=== PATIENT | male | born 1955 | race Caucasian/White ===

== ENCOUNTER 2019-09-14 16:17 | Inpatient (IN) | payer MEDICAID ==
[~2019-09-14] VITALS: Ht 185.4 cm; Wt 100.0 kg
[2019-09-14] MEDS ORDERED: metoprolol tartrate 1mg/ml inj IV ONE (16:25)
[2019-09-14 16:55] LABS: ALANINE AMINOTRANSFERASE 17 U/L (12-78); ALBUMIN 2.4 G/DL (3.4-5.0); ALBUMIN/GLOBULIN RATIO 0.7 (1.1-1.5); ALKALINE PHOSPHATASE 102 IU/L (46-116); ANION GAP 10 (8-16); ASPARTATE AMINO TRANSFERASE 26 U/L (10-37); BILIRUBIN,TOTAL 0.9 MG/DL (0.1-1.0); BLOOD UREA NITROGEN 20 MG/DL (7-18); BUN/CREATININE RATIO 15.5 (5.4-32.0); CALCIUM 8.6 MG/DL (8.5-10.1); CHLORIDE 108 MMOL/L (99-107); CREATININE 1.29 MG/DL (0.60-1.10); GLUCOSE 95 MG/DL (70-104); POTASSIUM 3.4 MMOL/L (3.5-5.1); SODIUM 144 MMOL/L (135-145); TOTAL CARBON DIOXIDE 26.4 MMOL/L (24-32); eGFR 57 ML/MIN
[2019-09-14] MEDS ORDERED: METF-436 PO (17:32)
[2019-09-14] MEDS ORDERED: ATOR40TA71 PO (17:32)
[2019-09-14] MEDS ORDERED: CLOP75TA33 PO (17:32)
[2019-09-14] MEDS ORDERED: LISI10TA4 PO (17:32)
[2019-09-14] MEDS ORDERED: GLIP2.5T3 PO (17:32)
[2019-09-14] MEDS ORDERED: HCTZ25T PO (17:32)
[2019-09-14] MEDS ORDERED: ASPI-611 PO (17:32)
[2019-09-14] MEDS ORDERED: potassium CL 10mEq/100ml bag 100 ML IV PRN ×2 (19:45)
[2019-09-14] MEDS ORDERED: acetaminophen 325mg tablet PO PRN ×2 (19:45)
[2019-09-14] MEDS ORDERED: HYDROcodone/acetaminophen 5mg/325mg tablet PO PRN (19:45)
[2019-09-14] MEDS ORDERED: ondansetron/PF 4mg/2ml inj IV PRN (19:45)
[2019-09-14] MEDS ORDERED: magnesium Cl slow-release 64mg tablet PO PRN (19:45)
[2019-09-14] MEDS ORDERED: potassium Cl 20 mEq SR tablet PO PRN (19:45)
[2019-09-14] MEDS ORDERED: morphine 2 MG/ML inj. syringe IV PRN ×2 (19:45)
[2019-09-14] MEDS ORDERED: HYDROcodone/acetaminophen 10/325mg tab PO PRN (19:45)
[2019-09-14] MEDS ORDERED: magnesium 4gm in 100ml NS 100 ML IV PRN (19:45)
[2019-09-14] MEDS ORDERED: magnesium 2GM in 50ml NS 50 ML IV PRN (19:45)
[2019-09-14] MEDS ORDERED: dextrose 50%-water 50ml dispensing syringe IV PRN ×2 (19:55)
[2019-09-14] MEDS ORDERED: insulin Lispro (HumaLOG) vial - multi-dose SQ SCH (19:55)
[2019-09-14] MEDS ORDERED: dextrose ORAL solution 15 GM/59 ML bottle PO PRN ×2 (19:55)
[2019-09-14] MEDS ORDERED: glucagon, human recombinant 1mg kit SUBCUT PRN (19:55)
[2019-09-14] MEDS ORDERED: MESSAGE TO PHARMACY PO ONE (19:55)
[2019-09-14] MEDS: K and/or MAG REPLACEMENT MC SCH (20:00)
[2019-09-14 20:21] LABS: HEMOGLOBIN A1C 6.8 % (4.5-6.2)
[2019-09-14] MEDS: heparin, porcine 5000 units/ml vial SQ SCH (20:39)
[2019-09-14] MEDS: normal saline 1000ml 1,000 ML IV SCH (20:39)
[2019-09-14] MEDS: docusate sod 100mg capsule PO SCH (20:40)
[2019-09-14] MEDS: insulin glargine (Lantus) pen - multi-dose SQ SCH (21:00)
[2019-09-14] MEDS ORDERED: temazepam 15mg capsule PO PRN (21:00)
--- NOTE | 2019-09-14 21:07 | NUR ---
Patient has not met DM protocol. Josesitotus held.
--- NOTE | 2019-09-14 21:25 | NUR ---
pt moved from room 3 to room 10 due to ems needing bed 3
[2019-09-14 21:35] LABS: CLARITY,URINE CLEAR (Clear); COLOR,URINE YELLOW (Yellow); GLUCOSE, URINE NEGATIVE (Neg); KETONES,URINE TRACE mg/dl (Neg); LEUKOCYTE ESTERASE ,URINE NEGATIVE (Neg); NITRITES, URINE NEGATIVE (Neg); OCCULT BLOOD,URINE MODERATE (Neg); PROTEIN,URINE >=300 mg/dl (Neg)
[2019-09-14 21:42] LABS: UA COLLECTION TYPE URINAL
[2019-09-14 21:44] LABS: BACTERIA,URINE NONE SEEN /HPF (Neg); RBC,URINE 0-2 /HPF (0-2); SQUAMOUS EPITHELIAL CELL,UR FEW /LPF (FEW); WBC,URINE 0-4 /HPF (0-4)
--- NOTE | 2019-09-15 02:52 | NUR ---
pt placed on hospital bed for comfort
[2019-09-15 05:12] LABS: BASOPHILS # (AUTO) 0.1 X10'3 (0-0.2); BASOPHILS % (AUTO) 0.8 % (0-1); EOSINOPHILS # (AUTO) 0.1 X10'3 (0-0.9); HEMATOCRIT 43.3 % (42.0-52.0); HEMOGLOBIN 14.9 g/dl (14.0-17.9); LYMPHOCYTES # (AUTO) 1.4 X10'3 (1.1-4.8); LYMPHOCYTES % (AUTO) 20.8 % (21-51); MEAN CORPUSCULAR HEMOGLOBIN 30.1 PG (27.0-31.0); MEAN CORPUSCULAR HGB CONC 34.4 g/dL (33.0-36.5); MEAN CORPUSCULAR VOLUME 87.6 FL (78-98); MEAN PLATELET VOLUME 9.3 FL (7.4-10.4); MONOCYTES # (AUTO) 0.7 X10'3 (0-0.9); MONOCYTES % (AUTO) 10.5 % (2-12); NEUTROPHILS # (AUTO) 4.6 X10'3 (1.8-7.7); NEUTROPHILS % (AUTO) 66.9 % (42-75); PLATELET COUNT 157 X10'3 (140-440); RED BLOOD COUNT 4.94 X10'6 (4.70-6.10); RED CELL DISTRIBUTION WIDTH 15.2 % (11.5-14.5); WHITE BLOOD COUNT 6.9 X10'3 (4.5-11.0)
[2019-09-15 05:20] LABS: ALANINE AMINOTRANSFERASE 18 U/L (12-78); ALBUMIN 2.2 G/DL (3.4-5.0); ALBUMIN/GLOBULIN RATIO 0.6 (1.1-1.5); ALKALINE PHOSPHATASE 97 IU/L (46-116); ANION GAP 10 (8-16); ASPARTATE AMINO TRANSFERASE 24 U/L (10-37); BILIRUBIN,TOTAL 0.7 MG/DL (0.1-1.0); BLOOD UREA NITROGEN 22 MG/DL (7-18); CALCIUM 8.3 MG/DL (8.5-10.1); CHLORIDE 110 MMOL/L (99-107); GLUCOSE 95 MG/DL (70-104); POTASSIUM 3.1 MMOL/L (3.5-5.1); SODIUM 145 MMOL/L (135-145); TOTAL CARBON DIOXIDE 25.3 MMOL/L (24-32); TOTAL PROTEIN 5.6 G/DL (6.4-8.2); eGFR 68 ML/MIN
[2019-09-15 05:23] LABS: MAGNESIUM 1.8 MG/DL (1.5-2.4)
--- NOTE | 2019-09-15 05:45 | NUR ---
Patient arrived to floor. Ambulated self to bed. Patient oriented to room and unit. Call light within reach.
[2019-09-15 06:00] VITALS: BP 171/90
--- NOTE | 2019-09-15 06:20 | NUR ---
Problems reprioritized. Patient report given, questions answered & plan of care reviewed with Myriam CHOI.
--- NOTE | 2019-09-15 07:36 | NUR ---
Patient in room MED 313. I have received report from STEPH Gonzalez and had the opportunity to ask questions and assume patient care.
[2019-09-15] MEDS ORDERED: non-formulary drug (Aspirin (Aspir 81) 1 TAB) PO SCH (08:00)
[2019-09-15] MEDS ORDERED: clopidogrel 75mg tablet PO SCH (08:00)
[2019-09-15] MEDS ORDERED: lisinopril 10 MG tablet PO SCH (08:00)
[2019-09-15] MEDS ORDERED: non-formulary drug (Atorvastatin Calcium 1 TAB) PO SCH (08:00)
[2019-09-15] MEDS: K and/or MAG REPLACEMENT MC SCH ×2 (08:00→20:00)
--- NOTE | 2019-09-15 08:12 | NUR ---
STROKE NURSE PAGED: [phone]: CATHY - STROKE ALERT FROM JASMINE LAST NIGHT. WERE YOU MADE AWARE? SORRY TO PAGE YOU BOTH, I DIDN'T KNOW WHO WAS ADVERTISING INTERN.
--- NOTE | 2019-09-15 08:16 | NUR ---
STEPH GUILLEN - STROKE NURSE CALLED BACK. WILL BE IN ABOUT 30 MIN TO SEE PATIENT.
[2019-09-15] MEDS ORDERED: nitroGLYCERIN 0.4mg SUBLingual tab SL PRN (09:10)
[2019-09-15] MEDS ORDERED: regadenoson 0.4mg/5ml syringe IV PRN (09:10)
[2019-09-15] MEDS ORDERED: aminophylline 250mg/10ml inj. IV PRN (09:10)
[2019-09-15] MEDS ORDERED: metoprolol tartrate 1mg/ml inj IV PRN (09:10)
[2019-09-15] MEDS: aspirin 81mg tablet.DR PO SCH (09:47)
[2019-09-15] MEDS: clopidogrel 75mg tablet PO SCH (09:47)
[2019-09-15] MEDS: docusate sod 100mg capsule PO SCH ×2 (09:48→21:47)
[2019-09-15] MEDS: heparin, porcine 5000 units/ml vial SQ SCH ×2 (09:50→21:48)
[2019-09-15] MEDS: atorvastatin 20mg tablet PO SCH (09:52)
[2019-09-15 10:17] LABS: CHOL/HDL RATIO 7.9 (0.00-4.99); CHOLESTEROL 276 MG/DL (0-200); HDL CHOLESTEROL 35 MG/DL (35-60); LDL CHOLESTEROL 162 MG/DL (50-100); TRIGLYCERIDES 194 MG/DL (20-135)
[2019-09-15 11:00] VITALS: BP 175/91
[2019-09-15] MEDS: potassium Cl 20 mEq SR tablet PO PRN ×3 (13:09→23:06)
[2019-09-15 15:00] VITALS: BP 160/90
[2019-09-15 18:00] VITALS: BP 177/96
--- NOTE | 2019-09-15 18:15 | NUR ---
Patient in room MED 313. I have received report from Myriam CHOI and had the opportunity to ask questions and assume patient care.
[2019-09-15] MEDS ORDERED: pneumococcal 23-VAL P-sac vacc 25 mcg/0.5ml vial IMVAC ONE (20:00)
[2019-09-15] MEDS: insulin glargine (Lantus) pen - multi-dose SQ SCH (21:00)
[2019-09-15] MEDS: normal saline 1000ml 1,000 ML IV SCH ×2 (21:46→22:24)
[2019-09-15 22:00] VITALS: BP 171/87
[2019-09-16 02:00] VITALS: BP 164/92
[2019-09-16 02:54] LABS: ALANINE AMINOTRANSFERASE 16 U/L (12-78); ALBUMIN 2.1 G/DL (3.4-5.0); ALBUMIN/GLOBULIN RATIO 0.6 (1.1-1.5); ALKALINE PHOSPHATASE 94 IU/L (46-116); ANION GAP 6 (8-16); ASPARTATE AMINO TRANSFERASE 22 U/L (10-37); BILIRUBIN,TOTAL 0.6 MG/DL (0.1-1.0); BLOOD UREA NITROGEN 18 MG/DL (7-18); CALCIUM 8.4 MG/DL (8.5-10.1); CHLORIDE 107 MMOL/L (99-107); CREATININE 1.06 MG/DL (0.60-1.10); GLUCOSE 109 MG/DL (70-104); POTASSIUM 3.6 MMOL/L (3.5-5.1); SODIUM 141 MMOL/L (135-145); TOTAL CARBON DIOXIDE 27.8 MMOL/L (24-32); TOTAL PROTEIN 5.5 G/DL (6.4-8.2); eGFR 71 ML/MIN
[2019-09-16 02:57] LABS: BASOPHILS % (AUTO) 0.7 % (0-1); EOSINOPHILS # (AUTO) 0.1 X10'3 (0-0.9); EOSINOPHILS % (AUTO) 1.5 % (0-6); HEMATOCRIT 43.4 % (42.0-52.0); LYMPHOCYTES # (AUTO) 1.3 X10'3 (1.1-4.8); LYMPHOCYTES % (AUTO) 20.4 % (21-51); MEAN CORPUSCULAR HEMOGLOBIN 30.2 PG (27.0-31.0); MEAN CORPUSCULAR HGB CONC 34.6 g/dL (33.0-36.5); MEAN CORPUSCULAR VOLUME 87.3 FL (78-98); MEAN PLATELET VOLUME 9.2 FL (7.4-10.4); MONOCYTES # (AUTO) 0.6 X10'3 (0-0.9); MONOCYTES % (AUTO) 9.8 % (2-12); NEUTROPHILS # (AUTO) 4.5 X10'3 (1.8-7.7); NEUTROPHILS % (AUTO) 67.6 % (42-75); PLATELET COUNT 157 X10'3 (140-440); RED BLOOD COUNT 4.97 X10'6 (4.70-6.10); RED CELL DISTRIBUTION WIDTH 14.9 % (11.5-14.5); WHITE BLOOD COUNT 6.6 X10'3 (4.5-11.0)
[2019-09-16 06:00] VITALS: BP 163/79
--- NOTE | 2019-09-16 06:05 | NUR ---
Problems reprioritized. Patient report given, questions answered & plan of care reviewed with Radha CHOI.
--- NOTE | 2019-09-16 06:30 | NUR ---
Patient in room MED 313. I have received report from Tata CHOI and had the opportunity to ask questions and assume patient care.
--- NOTE | 2019-09-16 07:27 | NUR ---
Patient in room MED 313. I have received report from Tata CHOI and had the opportunity to ask questions and assume patient care.
[2019-09-16] MEDS: K and/or MAG REPLACEMENT MC SCH ×2 (08:00→20:00)
[2019-09-16] MEDS: aspirin 81mg tablet.DR PO SCH (08:37)
[2019-09-16] MEDS: atorvastatin 20mg tablet PO SCH (08:37)
[2019-09-16] MEDS: clopidogrel 75mg tablet PO SCH (08:37)
[2019-09-16] MEDS: heparin, porcine 5000 units/ml vial SQ SCH ×2 (08:38→20:53)
[2019-09-16] MEDS: docusate sod 100mg capsule PO SCH ×2 (08:38→20:49)
--- NOTE | 2019-09-16 10:04 | NUR ---
Completed tele neuro exam with Dr Cruz. recommends full anticoagulation based on finding of paroxysmal magy during night, ASA 81 mg okay if desired by cardiology.
--- NOTE | 2019-09-16 10:21 | NUR ---
Spoke briefly with Dr Gong regarding completion of tele neuro exam and neurologist recommendations. Dr Gong informed that a note is in chart from Dr Cruz.
[2019-09-16 11:00] VITALS: BP 153/80
[2019-09-16] MEDS: normal saline 1000ml 1,000 ML IV SCH (11:44)
[2019-09-16 15:00] VITALS: BP 168/81
[2019-09-16] MEDS ORDERED: HYDR12.55 PO (17:23)
[2019-09-16 18:00] VITALS: BP 201/101
--- NOTE | 2019-09-16 18:00 | NUR ---
Patient in room MED 313. I have received report from RENAE CHOI and had the opportunity to ask questions and assume patient care.
--- NOTE | 2019-09-16 20:42 | NUR ---
CONTACTED TO KEEP PATIENT OVERNIGHT UNTIL RIDE HOME CAN BE ESTABLISHED. SHARONA AGREED, SCIENTIST/ENGINEER RECOMMENDED CASE MANAGEMNT TO INTERVENE IN AM FOR DISCHARGE.BUILDING CARPENTER HELPER BRIGIDA LEFT FOR CASE MANAGEMNT IN AM.
[2019-09-16] MEDS: insulin glargine (Lantus) pen - multi-dose SQ SCH (21:00)
[2019-09-16 22:00] VITALS: BP 220/94
[2019-09-17] MEDS: normal saline 1000ml 1,000 ML IV SCH ×2 (01:04→04:00)
[2019-09-17 02:00] VITALS: BP 166/91
--- NOTE | 2019-09-17 06:06 | NUR ---
Problems reprioritized. Patient report given, questions answered & plan of care reviewed with REANE CHOI.
[2019-09-17 06:33] LABS: BASOPHILS % (AUTO) 0.5 % (0-1); EOSINOPHILS # (AUTO) 0.1 X10'3 (0-0.9); EOSINOPHILS % (AUTO) 1.3 % (0-6); HEMOGLOBIN 15.1 g/dl (14.0-17.9); LYMPHOCYTES # (AUTO) 1.2 X10'3 (1.1-4.8); LYMPHOCYTES % (AUTO) 17.5 % (21-51); MEAN CORPUSCULAR HGB CONC 34.3 g/dL (33.0-36.5); MEAN CORPUSCULAR VOLUME 87.5 FL (78-98); MEAN PLATELET VOLUME 9.2 FL (7.4-10.4); MONOCYTES # (AUTO) 0.8 X10'3 (0-0.9); MONOCYTES % (AUTO) 12.5 % (2-12); NEUTROPHILS # (AUTO) 4.6 X10'3 (1.8-7.7); NEUTROPHILS % (AUTO) 68.2 % (42-75); PLATELET COUNT 164 X10'3 (140-440); RED BLOOD COUNT 5.04 X10'6 (4.70-6.10); RED CELL DISTRIBUTION WIDTH 14.4 % (11.5-14.5); WHITE BLOOD COUNT 6.8 X10'3 (4.5-11.0)
[2019-09-17 06:43] LABS: ALBUMIN 2.1 G/DL (3.4-5.0); ALBUMIN/GLOBULIN RATIO 0.4 (1.1-1.5); ALKALINE PHOSPHATASE 116 IU/L (46-116); ANION GAP 8 (8-16); ASPARTATE AMINO TRANSFERASE 21 U/L (10-37); BILIRUBIN,TOTAL 0.6 MG/DL (0.1-1.0); BLOOD UREA NITROGEN 13 MG/DL (7-18); BUN/CREATININE RATIO 12.6 (5.4-32.0); CALCIUM 8.7 MG/DL (8.5-10.1); CHLORIDE 107 MMOL/L (99-107); CREATININE 1.03 MG/DL (0.60-1.10); GLUCOSE 104 MG/DL (70-104); MAGNESIUM 1.7 MG/DL (1.5-2.4); POTASSIUM 4.1 MMOL/L (3.5-5.1); SODIUM 141 MMOL/L (135-145); TOTAL CARBON DIOXIDE 26.2 MMOL/L (24-32); TOTAL PROTEIN 6.8 G/DL (6.4-8.2); eGFR 73 ML/MIN
[2019-09-17 06:44] LABS: ALANINE AMINOTRANSFERASE < 6 U/L (12-78)
--- NOTE | 2019-09-17 06:48 | NUR ---
Patient in room MED 313. I have received report from Florecita RN and had the opportunity to ask questions and assume patient care.
[2019-09-17] MEDS: K and/or MAG REPLACEMENT MC SCH (07:35)
[2019-09-17] MEDS: clopidogrel 75mg tablet PO SCH (07:46)
[2019-09-17] MEDS: docusate sod 100mg capsule PO SCH (07:46)
[2019-09-17] MEDS: aspirin 81mg tablet.DR PO SCH (07:46)
[2019-09-17] MEDS: heparin, porcine 5000 units/ml vial SQ SCH (07:52)
[2019-09-17] MEDS: atorvastatin 20mg tablet PO SCH (07:52)
--- NOTE | 2019-09-17 08:38 | NUR ---
PATIENT DISCHARGED. ALL INSTRUCTIONS UNDERSTOOD BY PATIENT. PIVX2 REMOVED WITH TIP INTACT. DENIES QUESTIONS AT THIS TIME. [facility] CALLED TO SET UP TRANSPORT HOME TO [place] AWAITING REGULATED PROGRAM MANAGER TIME AND HOG TENDER
--- NOTE | 2019-09-17 09:03 | NUR ---
[facility] TRANSPORT. SPORTS ATHLETIC TRAINER TIME 1200 NOON WITH [facility]. TRIP ID # [id number]
--- NOTE | 2019-09-17 09:10 | NUR ---
case management paged: [phone]: [facility] transport called, curing pickling packer time 1200 noon. nurse Emeli
== END 2019-09-17 12:20 | disposition home or self-care (01) | DRG 45 ==
LOC: ER 16:18 → ED HOLD 19:44 → MED 3N 09-15 05:45
PROVIDERS: ADMIT Internal Medicine; ATTEND Internal Medicine
PROC: 3E0234Z Introduction of Serum, Toxoid and Vaccine into Muscle, Percutaneous Approach (ICD-10-PCS; principal; 2019-09-15)
DX: I63.81 Other cerebral infarction due to occlusion or stenosis of small artery (principal); I21.A1 Myocardial infarction type 2; N17.9 Acute kidney failure, unspecified; I15.8 Other secondary hypertension; E11.9 Type 2 diabetes mellitus without complications; E78.5 Hyperlipidemia, unspecified; F17.200 Nicotine dependence, unspecified, uncomplicated; I48.91 Unspecified atrial fibrillation; Z86.73 Personal history of transient ischemic attack (TIA), and cerebral infarction without residual deficits; Z23 Encounter for immunization; Z79.899 Other long term (current) drug therapy; Z79.82 Long term (current) use of aspirin
CPT/HCPCS: 36415; 70544; 70551; 80053; 80061; 81001; 82948; 83036; 83735; 83880; 84484; 85025; 85610; 87040; 87081; 93005; 93306; 96374; 97110; 97116; 97162; 97530; 99291; G0378; J1644; J1815; J3475; J3490; J7030